=== PATIENT | female | born 1960 | race Caucasian/White ===

== ENCOUNTER → 2024-10-25 09:40 | Outpatient (CLI) | payer OTHER, SELFPAY ==
--- NOTE | 2024-10-25 09:47 | DI.RAD.S_ITS ---
PROCEDURE: XR HAND RT 2V INDICATIONS: HAND PAIN TECHNIQUE: Two views of the right hand acquired. COMPARISON: None. FINDINGS: Bones: No focal osseous lesions. Joints: Mild distal radial ulnar STT, severe 1st CMC degenerative change appreciated. There is mild degenerative change in all interphalangeal joints. Slight dorsal subluxation of the ulna seen on lateral view which is likely projectional Soft tissues: Mild diffuse soft swelling noted. IMPRESSION: Multilevel degeneration Dictated by: Jared Landis M.D. on 10/26/2024 at 11:43 Approved by: Jared Landis M.D. on 10/26/2024 at 11:45
--- NOTE | 2024-10-25 09:47 | DI.RAD.S_ITS ---
PROCEDURE: XR HAND LT 2V INDICATIONS: HAND PAIN TECHNIQUE: Two views of the hand(s) acquired. COMPARISON: None. FINDINGS: Bones: Old ununited fracture ulnar styloid process tip appreciated. No significant osseous abnormality. Joints: Mild STT, severe 1st CMC 1st PIP 2nd and 3rd DIP degenerative change noted. There is also mild subluxation of the 2nd DIP. There is mild degenerative change remaining interphalangeal joints. Soft tissues: No suspicious soft tissue calcifications. IMPRESSION: Multilevel degeneration. Mild subluxation 2nd DIP Dictated by: Jared Landis M.D. on 10/26/2024 at 12:09 Approved by: Jared Landis M.D. on 10/26/2024 at 12:10
--- NOTE | 2024-10-25 09:47 | DI.RAD.S_ITS ---
PROCEDURE: XR LUMBAR SPINE 2-3V INDICATIONS: BACK PAIN TECHNIQUE: 3 views of the lumbar spine were acquired. COMPARISON: None. FINDINGS: Lumbar spine curvature and alignment: Grade 1 L4-5 spondylolisthesis due to degenerate facet disease appreciated. The remaining lumbar spine is anatomically aligned. Bones: There are no osseous abnormalities. Disc spaces: Mild L2-3, L3-4 and L4-5 degenerative disc disease appreciated. Moderate L5-S1 degenerative disc disease also noted. Moderate L4-5 and L5-S1 degenerative facet disease is seen. Soft tissues: No soft tissue swelling, calcification or mass. IMPRESSION: Grade 1 L4-5 spondylolisthesis due to degenerative facet disease. Multilevel degeneration Dictated by: Jared Landis M.D. on 10/26/2024 at 11:47 Approved by: Jared Landis M.D. on 10/26/2024 at 11:49
== END ==
PROVIDERS: Referring Provider Internal Medicine Cardiovascular Disease; Visit Provider Internal Medicine Cardiovascular Disease
DX: S63.241A Subluxation of distal interphalangeal joint of left index finger, initial encounter (principal); S52.612S Displaced fracture of left ulna styloid process, sequela; M25.549 Pain in joints of unspecified hand; M51.360 Other intervertebral disc degeneration, lumbar region with discogenic back pain only; M51.370 Other intervertebral disc degeneration, lumbosacral region with discogenic back pain only; M47.816 Spondylosis without myelopathy or radiculopathy, lumbar region; M47.817 Spondylosis without myelopathy or radiculopathy, lumbosacral region; M43.16 Spondylolisthesis, lumbar region
CPT/HCPCS: 72100; 73120

== ENCOUNTER 2024-11-25 16:45 | Emergency (ER) | payer OTHER, MEDICAID, SELFPAY ==
[2024-11-25] VITALS (15 sets, daily range): BP systolic 97–119; BP diastolic 54–67; PULSE 56–89; RESP 14–20; TEMP 37.9; O2SAT 95–98; BMI 15.7
[2024-11-25 18:08] LABS: Influenza A - CEPHEID Flu A NEGATIVE (NEGATIVE); Influenza B - CEPHEID Flu B NEGATIVE (NEGATIVE); Respiratory Syncytial Virus Negative (Negative)
[2024-11-25 18:18] LABS: COVID-19 CEPHEID 4-PLEX PCR Negative (Negative)
--- NOTE | 2024-11-25 20:37 | PC.NURSE ---
Pt resting quietly with eyes closed, resps even and not labored. No distress noted at this time. Pt rouses easily to verbal stimuli. Pt remains connected to blood pressure and pulse ox monitors with alarms on and audible. Call light within reach
--- NOTE | 2024-11-25 22:30 | PC.NURSE ---
No change in patient condition or status. Pt resting quietly with eyes closed, resps even and not labored. No distress noted at this time. Pt rouses easily to verbal stimuli. Pt remains connected to blood pressure and pulse ox monitors with alarms on and audible. Call light within reach.
--- NOTE | 2024-11-25 23:10 | ED_ITS ---
HPI - URI/Sore Throat General Chief Complaint: Upper Respiratory Symptoms Stated Complaint: thinks toxic mold poisoning Time Seen by Provider: 11/25/24 23:10 Source: patient Mode of arrival: Ambulatory History of Present Illness HPI Narrative: 64-year-old female without any significant past medical history comes into the ED from home for evaluation of possible mold poisoning/exposure. She states that she has been sick since June 2024 states that she lives in a unfinished basement and states that she has not been able to sleep since, states that she has been having intermittent shortness of breath and ?everything tastes like soap. She states that she has cleaned the living space multiple times but states that it was initially covered mold, she states that she has been coughing persistently since the symptoms in June 2024. She is also complaining of diffuse weakness chest pain shortness of breath, states it has been ongoing persistent but worsening over the past 3 weeks. States that she has not seen a doctor for this since her symptoms started. Related Data Previous Rx's Medication Instructions Recorded doxycycline hyclate 100 mg capsule 100 mg PO BID 5 days #10 caps 11/26/24 Review of Systems Review of Systems Narrative: General: Generalized weakness HEENT: Denies headache, eye drainage, eye irritation, head trauma, sore throat, voice change Cardiovascular: Denies any chest pain, palpitations, shortness of breath, tachycardia Respiratory: Positive cough shortness of breath denies wheeze stridor GI/: Denies any abdominal pain, nausea, vomiting, diarrhea, bright red blood per rectum, melanotic stools, urinary frequency, urinary retention, dysuria, hematuria MSK: Denies any joint pain, muscle pains, swelling Skin: Denies any rashes, lesions, discoloration Neuro: Denies any headache, lightheadedness, dizziness, fainting, weakness Psych: Denies SI/HI Patient History Social History Smoking Status: Never smoker Smoking Status: Never smoker Exam Narrative Exam Narrative: General: Cooperative, comfortable, well-developed, not in acute distress HEENT: Normocephalic, atraumatic, PERRLA, normal sclera, eyelids normal, Neck: Active full range of motion, atraumatic Chest: Normal to inspection, negative crepitus, no overlying erythema ecchymosis Respiratory: Normal respiratory effort, not in acute respiratory distress, clear to auscultation bilaterally negative cough, wheeze, tachypnea, rhonchi, rales Cardiology: Regular rate rhythm negative gallop, murmur, rubs GI/: Normal to inspection, soft, nonrigid, no tenderness to palpation, exam deferred MSK: Full range of active range of motion of all 4 extremities, atraumatic Skin: No rashes lesions noted Neuro: Alert awake oriented x3, moves all 4 extremities spontaneously, cranial nerves intact, able to answer all questions appropriately follows commands appropriately Psych: Cooperative, negative suicidal or homicidal ideations Initial Vital Signs Initial Vital Signs: Vital Signs Temperature 100.2 F H 11/25/24 17:15 Pulse Rate 89 11/25/24 17:15 Respiratory Rate 20 11/25/24 17:15 Blood Pressure 119/59 L 11/25/24 17:15 Pulse Oximetry 97 11/25/24 17:15 Oxygen Delivery Method Room Air 11/25/24 17:15 Course Orders Ordered: ED Orders 11/25/24 17:23 Covid-19 + FLU A/B + RSV - PCR Stat 11/25/24 23:19 CXR [XR chest 1V] Stat EKG-12 Lead Stat 11/25/24 23:30 Urine Microscopic Stat 11/25/24 23:47 CBC Auto Diff [Complete Blood Count AUTO DIFF] Stat CMP [Comprehensive Metabolic Panel] Stat Lipase Stat MAG [Magnesium] Stat NT-proBNP (BNP-Adult 18+) Stat Troponin & CK Cardiac Panel Stat Discontinued Medications Sodium Chloride (Normal Saline 0.9%) 1,000 mls @ 1,000 mls/hr IV BOLUS ONE Stop: 11/26/24 00:18 Last Infusion: 11/26/24 00:54 Dose: Infused Documented By: Admin: 11/25/24 23:45 Dose: 1,000 mls/hr Documented By: DIMITRY Vital Signs Vital signs: Vital Signs - 8 hr 11/25/24 19:21 11/25/24 19:22 11/25/24 19:22 Pulse Rate 87 78 Respiratory Rate 18 Blood Pressure 118/67 Pulse Oximetry 95 98 Oxygen Delivery Method Room Air 11/25/24 19:30 11/25/24 19:30 11/25/24 20:00 Pulse Rate 68 Respiratory Rate 14 Blood Pressure 105/62 97/54 L Pulse Oximetry 97 Oxygen Delivery Method Room Air 11/25/24 20:00 11/25/24 20:30 11/25/24 20:30 Pulse Rate 63 59 L Respiratory Rate 16 16 Blood Pressure 98/57 L Pulse Oximetry 97 96 Oxygen Delivery Method Room Air Room Air 11/25/24 21:00 11/25/24 21:00 11/25/24 21:30 Pulse Rate 60 61 Respiratory Rate Blood Pressure 101/55 L Pulse Oximetry 95 96 Oxygen Delivery Method Room Air Room Air 11/25/24 21:31 11/25/24 21:32 11/25/24 21:33 Pulse Rate 61 61 Respiratory Rate Blood Pressure 99/58 L Pulse Oximetry 96 96 Oxygen Delivery Method Room Air Room Air 11/25/24 21:33 11/25/24 22:00 11/25/24 22:00 Pulse Rate 63 59 L Respiratory Rate Blood Pressure 105/55 L Pulse Oximetry 96 95 Oxygen Delivery Method Room Air Room Air 11/25/24 22:30 11/25/24 23:00 11/25/24 23:00 Pulse Rate 56 L 62 Respiratory Rate Blood Pressure 110/59 L Pulse Oximetry 95 95 Oxygen Delivery Method 11/25/24 23:39 11/25/24 23:39 11/26/24 00:00 Pulse Rate 67 60 Respiratory Rate 18 Blood Pressure 103/58 L Pulse Oximetry 97 96 Oxygen Delivery Method Room Air 11/26/24 00:00 Pulse Rate Respiratory Rate 18 Blood Pressure 101/62 Pulse Oximetry Oxygen Delivery Method MDM - URI/Sore Throat Differential Diagnosis Differential diagnosis: Likely upper respiratory infection, influenza and other (ACS, pneumonia, electrolyte abnormality) Lab Data 11/25/24 23:47 11/25/24 23:47 Labs: Lab Results 11/25/24 11/25/24 11/25/24 Range/Units 17:23 23:30 23:47 WBC 11.5 H (4.5-11.0) X10^3/uL RBC 4.20 (4.0-5.2) X10^6/uL Hgb 12.5 (12.0-16.0) g/dL Hct 37.5 (36-46) % MCV 89.3 (80-100) fL MCH 29.7 (26-34) PG MCHC 33.3 (30-36) % RDW 12.2 (11.6-14.8) % Plt Count 351 (150-400) X10^3/uL Neut % (Auto) 62.6 (50-75) % Lymph % (Auto) 23.9 L (25-40) % [place] % (Auto) 12.1 (3-14) % Eos % (Auto) 0.8 L (2-4) % Baso % (Auto) 0.6 (0-2) % Neut # (Auto) 7200 H (5155-2463) /uL Lymph # (Auto) 2700 (2124-7025) /uL [place] # (Auto) 1400 H (0-900) /uL Eos # (Auto) 100 (0-450) /uL Baso # (Auto) 100 (0-100) /uL Sodium 136 L (137-145) mmol/L Potassium 3.4 (3.4-5.1) mmol/L Chloride 103 (98-107) mmol/L Carbon Dioxide 26 (22-32) mmol/L BUN 11 (7-17) mg/dL Creatinine 0.71 (0.52-1.04) mg/dL Estimated GFR > 60 (>60) mL/min BUN/Creatinine Ratio 15.5 (6-22) Glucose 102 (80-110) mg/dL Calcium 9.1 (8.4-10.2) mg/dL Magnesium 2.0 (1.6-2.3) mg/dL Total Bilirubin 0.4 (0.2-1.3) mg/dL AST 24 (14-36) IU/L ALT 20 (<35) IU/L Alkaline Phosphatase 55 (38-126) U/L Total Creatine Kinase 58 (30-135) U/L Troponin I < 0.012 (0.01-0.034) ng/mL NT-Pro-B Natriuret Pep 239 H (<125) pg/mL Total Protein 7.1 (6.3-8.2) g/dL Albumin 3.8 (3.5-5.0) g/dL Globulin 3.3 (1.7-4.1) g/dL Albumin/Globulin Ratio 1.2 (1.0-2.8) Lipase 106 (23-300) U/L Urine RBC 0-1/hpf (0-5/HPF) Urine WBC 0-1/hpf (0-5/HPF) Ur Squamous Epith Cells 5-10 /hpf H (0-5/HPF) Urine Bacteria Moderate (10-30) H (None) Urine Mucus 3+ H (Negative) Ur Culture Indicated? Cult not indicated Vol Urine Centrifuged 10ml (spun) SARS-CoV-2 (PCR) Negative (Negative) Influenza A (RT-PCR) Flu a negative (NEGATIVE) Influenza B (RT-PCR) Flu b negative (NEGATIVE) RSV (PCR) Negative (Negative) Urine Dip Bedside Urine Glucose Negative Bedside Urine Bilirubin - Negative Bedside Urine Ketone - Negative Urine Specific [place] 1.025 Bedside Urine Occult Blood + Bedside Urine pH 6 Bedside Urine Protein + 30 Bedside Urine Urobilinogen - Negative Bedside Urine Nitrite - Negative Bedside Urine Leukocytes - Negative Esterase Imaging Data Chest x-ray: Radiologist's Impression: [address] [address] XRay Report Signed Patient: Ivette Solorzano MR#: [id number] : 1960 Acct:[id number] Age/Sex: 64 / F Date of Service: 11/25/24 Loc: ED Accession Number: [id number] Procedure: XR chest 1V Ordering Provider: Rell Castaneda D.O. PROCEDURE: XR CHEST 1V INDICATIONS: cough TECHNIQUE: One view of the chest was acquired. COMPARISON: None. FINDINGS: Surgical changes and devices: None. Lungs and pleura: Small airspace opacity at left lung base is seen. Blunting of left costophrenic angle is also noted. Right lung is clear. No pneumothorax. Mediastinum: Mediastinal contours appear normal. Heart size is normal. Bones and chest wall: No suspicious bony lesions. Overlying soft tissues appear unremarkable. IMPRESSION: Trace left pleural effusion and suggestion of left basilar infiltrate/atelectasis. Clinical correlation and follow-up is recommended. No pneumothorax. ECG Data Interpretation: EKG interpreted ED physician sinus 62 beats per minute QTC [address] changes no STEMI MDM Narrative Medical decision making narrative: 65-year-old female without any significant past medical history comes into the ED from home for evaluation of multiple complaints. She states that her symptoms started in June of 2024, she states that she lives in an unfinished area in the basement with her family, she states that there was an area with mold she cleaned it with Clorox and ever since then she has been having cough shortness of breath muscle aches, she states that symptoms have not gotten any better therefore decided come into the ED for further evaluation treatment. She states that she has not seen anybody for this previously. She denies any headache visual disturbances fever chills nausea vomiting abdominal pain or any other GI/ symptoms time. Patient had lab work performed here patient with leukocytosis of 11.5 chest x-ray showing trace pleural effusion versus consolidation given patient with cough we will treat for pneumonia. Patient with EKG nonischemic in nature Chem panel unremarkable troponin negative BNP only mildly elevated at 239 patient not clinically fluid overload, urinalysis contaminated not consistent with acute urinary tract infection respiratory panel negative. Patient was given strict return precautions she verbalized understanding of this and agrees to being discharged home with outpatient follow up. Discharge Plan Departure Patient Disposition: Home Clinical Impression: Pneumonia Instructions: DI for Pneumonia -- Adult Activity Restrictions/Additional Instructions: Please follow up with your primary care doctor Please read the discharge instructions sheet carefully and bring all papers to all doctor follow-up visits, as it may contain information that your doctor may want to see. Disease processes change and evolve, if your symptoms worsen or if you develop any new symptoms that are concerning to you please return for evaluation. Your evaluation today does not show any evidence of any life- threatening/serious illnesses requiring admission to the hospital or surgery. Please follow-up with your doctor for re-evaluation in approximately 1 day. Seek immediate medical attention for any worrisome symptoms. *If you do not have a primary care provider please contact the [facility] Resource line at [phone]. They will ask some questions about your medical history and help get you set up with a doctor in the community. Prescriptions: New doxycycline hyclate 100 mg capsule 100 mg PO BID 5 Days Qty: 10 0RF Stand Alone Forms: Patient Portal/API/Survey
--- NOTE | 2024-11-25 23:19 | EKG_ITS ---
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
--- NOTE | 2024-11-25 23:19 | DI.RAD.S_ITS ---
PROCEDURE: XR CHEST 1V INDICATIONS: cough TECHNIQUE: One view of the chest was acquired. COMPARISON: None. FINDINGS: Surgical changes and devices: None. Lungs and pleura: Small airspace opacity at left lung base is seen. Blunting of left costophrenic angle is also noted. Right lung is clear. No pneumothorax. Mediastinum: Mediastinal contours appear normal. Heart size is normal. Bones and chest wall: No suspicious bony lesions. Overlying soft tissues appear unremarkable. IMPRESSION: Trace left pleural effusion and suggestion of left basilar infiltrate/atelectasis. Clinical correlation and follow-up is recommended. No pneumothorax. Dictated by: Pedro Garcia M.D. on 11/25/2024 at 23:45 Approved by: Pedro Garcia M.D. on 11/25/2024 at 23:45
--- NOTE | 2024-11-25 23:38 | PC.NURSE ---
Imaging at bedside
[2024-11-25] MEDS: SODIUM CHLORIDE 0.9% 1,000 ML 1000 ML IV (23:45)
[2024-11-25 23:55] LABS: Add Manual Diff / Slide Review NO; Basophils Absolute Auto 100 /uL (0-100); Basophils Percent Auto 0.6 % (0-2); Eosinophils Absolute Auto 100 /uL (0-450); Eosinophils Percent Auto 0.8 % (2-4); Hematocrit 37.5 % (36-46); Hemoglobin 12.5 g/dL (12.0-16.0); Lymphocytes Absolute Auto 2700 /uL (1100-4500); Lymphocytes Percent Auto 23.9 % (25-40); Mean Corpuscular HGB Conc 33.3 % (30-36); Mean Corpuscular Hemoglobin 29.7 PG (26-34); Mean Corpuscular Volume 89.3 fL (80-100); Monocytes Absolute Auto 1400 /uL (0-900); Monocytes Percent Auto 12.1 % (3-14); Neutrophils Absolute Auto 7200 /uL (1500-7000); Neutrophils Percent Auto 62.6 % (50-75); Platelet Count 351 X10^3/uL (150-400); Red Cell Distribution Width 12.2 % (11.6-14.8); White Blood Cell Count 11.5 X10^3/uL (4.5-11.0)
[2024-11-25 23:58] LABS: Bacteria Urine Moderate (10-30); Mucus Urine 3+ (Negative); RBC Urine 0-1/HPF (0-5/HPF); Squamous Epithelial Cell Urine 5-10 /HPF (0-5/HPF); Urine Volume 10mL (spun); WBC Urine 0-1/HPF (0-5/HPF)
[2024-11-26] VITALS: BP 101/62; PULSE 60; RESP 18; O2SAT 96
[2024-11-26] LABS: Culture Indicated Urine Cult Not Indicated
[2024-11-26 00:06] LABS: Alanine Aminotransferase 20 IU/L (<35); Albumin 3.8 g/dL (3.5-5.0); Albumin Globulin Ratio 1.2 (1.0-2.8); Alkaline Phosphatase 55 U/L (38-126); Aspartate Aminotransferase 24 IU/L (14-36); BUN Creatinine Ratio 15.5 (6-22); Bilirubin Total 0.4 mg/dL (0.2-1.3); Blood Urea Nitrogen 11 mg/dL (7-17); Calcium 9.1 mg/dL (8.4-10.2); Carbon Dioxide 26 mmol/L (22-32); Chloride 103 mmol/L (98-107); Creatine Kinase 58 U/L (30-135); Estimated Glomerular Filt Rate > 60 mL/min (>60); Globulin 3.3 g/dL (1.7-4.1); Glucose 102 mg/dL (80-110); HEMOLYSIS < 15 (0-50); Lipase 106 U/L (23-300); Potassium 3.4 mmol/L (3.4-5.1); Sodium 136 mmol/L (137-145); Total Protein 7.1 g/dL (6.3-8.2)
[2024-11-26 00:16] LABS: NT-proBNP (BNP-Adult 18+) 239 pg/mL (<125); Troponin I < 0.012 ng/mL (0.01-0.034)
[2024-11-26 00:30] VITALS: PULSE 60; O2SAT 97
[2024-11-26 01:00] VITALS: BP 99/51; PULSE 61; RESP 18; O2SAT 96
[2024-11-26] MEDS: DOXYCYCLINE HYCLATE 100 MG TABLET PO (01:22)
== END 2024-11-26 02:01 | disposition home or self-care (01) ==
PROVIDERS: Emergency Medicine; Emergency Provider Student in an Organized Health Care Education/Training Program
DX: J18.9 Pneumonia, unspecified organism (principal); R07.9 Chest pain, unspecified; Z77.120 Contact with and (suspected) exposure to mold (toxic); Z58.89 Other problems related to physical environment
CPT/HCPCS: 87635; 87400 ×2; 87420; 0241U; 36415; 71045; 80053; 81003; 81015; 82550; 83690; 83735; 83880; 84484; 85025; 93005; 96360; 99284